=== PATIENT | male | born 1965 | race Caucasian/White ===

== ENCOUNTER → 2019-07-16 | Outpatient (CLI) | payer BC ==
--- NOTE | 2019-07-16 16:50 | Diagnostic Imaging Report ---
Indication: Cough Technique: 2 views of the chest Comparison: None Findings: Lungs and pleural spaces are clear. The heart size is normal. The bones are unremarkable. Impression: Negative
== END | disposition home or self-care (01) ==
LOC: RAD 16:25
DX: R05 Cough (principal); B20 Human immunodeficiency virus [HIV] disease; R06.02 Shortness of breath
CPT/HCPCS: 71046